=== PATIENT | female | born 1950 | race Two or more races ===

== ENCOUNTER 2019-07-19 11:59 | Outpatient (CLI) | payer OTHER | END 2019-07-19 12:05 | disposition home or self-care (01) | LOC: LAB 11:59 | DX: N39.0 Urinary tract infection, site not specified (principal) ==

== ENCOUNTER 2023-05-25 07:30 | Outpatient (CLI) | payer OTHER | END 2023-05-25 07:32 | disposition home or self-care (01) | LOC: NUCLEAR 07:30 | PROVIDERS: ATTEND Internal Medicine | DX: I11.9 Hypertensive heart disease without heart failure (principal) | CPT/HCPCS: 78452; 93017; A9500; J0153 ==